=== PATIENT | male | born 1960 | race Caucasian/White ===

== ENCOUNTER 2021-11-22 22:48 | Emergency (ER) | payer BC, OTHER ==
[~2021-11-22] VITALS: Ht 172.7 cm; Wt 88.6 kg
[2021-11-22] MEDS ORDERED: BISO1TAB18 PO (23:07)
[2021-11-22] MEDS ORDERED: IRBE150T7 PO (23:08)
[2021-11-22] MEDS ORDERED: ROSU20TA5 PO (23:08)
[2021-11-22] MEDS ORDERED: RABE1TAB4 PO (23:09)
[2021-11-22] MEDS ORDERED: SILD100T PO (23:10)
[2021-11-23 01:34] LABS: BASO % 0.4 % (0.0-1.0); EOS # 0.3 10^3/uL (0.0-0.5); EOS % 3.3 % (0.0-3.0); HEMATOCRIT 39.3 % (42.0-52.0); HEMOGLOBIN 13.1 g/dl (13.5-17.5); LYMPH # 1.5 10^3/uL (1.5-5.0); LYMPH % 19.6 % (24.0-44.0); MEAN CORPUSCULAR HEMOGLOBIN 29.4 pg (27.0-33.0); MEAN CORPUSCULAR HGB CONC 33.3 g/dl (32.0-36.5); MEAN CORPUSCULAR VOLUME 88.1 fl (80.0-96.0); MONO # 0.6 10^3/uL (0.0-0.8); MONO % 8.3 % (2.0-8.0); NEUTROPHILS # 5.2 10^3/uL (1.5-8.5); NEUTROPHILS % 68.1 % (36.0-66.0); PLATELET COUNT, AUTOMATED 247 10^3/uL (150-450); RED BLOOD COUNT 4.46 10^6/uL (4.30-6.10); WHITE BLOOD COUNT 7.6 10^3/uL (4.0-10.0)
[2021-11-23 02:00] LABS: ALBUMIN 3.7 GM/DL (3.2-5.2); BILIRUBIN,DIRECT 0.2 MG/DL (0.0-0.2); BILIRUBIN,TOTAL 0.3 MG/DL (0.2-1.0); TOTAL PROTEIN 6.4 GM/DL (6.4-8.2)
[2021-11-23] MEDS ORDERED: ISOVUE-370 76% 100ML VIAL As Ordered ONE (02:36)
[2021-11-23] MEDS ORDERED: KETOROLAC 30 MG/ML 1ML VIAL IV ONE (03:35)
[2021-11-23] MEDS ORDERED: MORPHINE 2 MG/ML 1ML VIAL IV ONE (05:25)
[2021-11-23 07:00] VITALS: BP 130/81
[2021-11-23] MEDS ORDERED: PRED20TA PO (07:01)
[2021-11-23] MEDS ORDERED: IBUP-1022 PO (07:01)
== END 2021-11-23 07:19 | disposition home or self-care (01) ==
LOC: M ED 22:48
DX: K65.4 Sclerosing mesenteritis (principal); R00.1 Bradycardia, unspecified; K57.30 Diverticulosis of large intestine without perforation or abscess without bleeding
CPT/HCPCS: 74177; 80047; 80076; 83605; 83690; 85025; 93005; 96374; 96375; 99285; J1885; J2270; Q9967

== ENCOUNTER → 2022-04-27 | Outpatient (CLI) | payer BC, OTHER ==
[~2022-04-27] MED LIST: BISO1TAB18 PO; GLUCAGON INJ 1MG VIAL As Ordered ONE; IBUP-1022 PO; IRBE150T7 PO; ISOVUE-370 76% 100ML VIAL As Ordered ONE; NEULUMEX 0.1% SUSPENSION 450ML BOTTLE (FORMERLY VOLUMEN) As Ordered ONE; PRED20TA PO; RABE1TAB4 PO; ROSU20TA5 PO; SILD100T PO
[2022-04-27 08:45] LABS: BLOOD UREA NITROGEN 17 MG/DL (9-23); CREATININE FOR GFR 1.06 MG/DL (0.70-1.30); GLOMERULAR FILTRATION RATE > 60.0 (>49)
== END ==
LOC: M RAD 07:57
PROVIDERS: ATTEND Internal Medicine Gastroenterology
DX: K65.4 Sclerosing mesenteritis (principal); R91.1 Solitary pulmonary nodule; I70.0 Atherosclerosis of aorta; K59.00 Constipation, unspecified
CPT/HCPCS: 36415; 74177; 82565; 84520; J1610

== ENCOUNTER → 2022-10-20 | Outpatient (CLI) | payer BC, OTHER ==
[~2022-10-20] MED LIST changes: +GASTROGRAFIN SOLUTION 30ML As Ordered ONE; -GLUCAGON INJ 1MG VIAL As Ordered ONE; -NEULUMEX 0.1% SUSPENSION 450ML BOTTLE (FORMERLY VOLUMEN) As Ordered ONE
== END ==
LOC: M RAD 13:29
PROVIDERS: ATTEND Internal Medicine Gastroenterology
DX: K65.4 Sclerosing mesenteritis (principal); R59.1 Generalized enlarged lymph nodes
CPT/HCPCS: 74177; Q9963; Q9967